=== PATIENT | female | born 1935 | race African-American/Black ===

== ENCOUNTER 2016-07-25 14:01 | Emergency (ER) | payer MEDICARE, OTHER ==
[~2016-07-25] VITALS: Ht 162.6 cm; Wt 81.8 kg
[~2016-07-25 14:01] MED LIST: ADV250 IH; ALBU8.5H IH; ALBU8HFA IH; ASPI81TA42 PO; CHL25 PO; CLOP75 PO; DOCU250C91 PO; ESCI10TA PO; FERR-89 PO; FOLI1TAB15 PO; LORA0.5T2 PO; LOSA50TA37 PO; METF500T4 PO; METO-325 PO; NITR.4 SL; PANT40TA25 PO; POTA8TAB4 PO; TIOT185 IH
[2016-07-25] MEDS ORDERED: MECLIZINE HCL 25 MG TABLET PO ONE (15:15)
[2016-07-25] MEDS ORDERED: ONDANSETRON HCL 4 MG/2 ML VIAL IVP ONE ×2 (15:15→17:45)
[2016-07-25 15:39] LABS: BASOPHILS % (AUTO) 0.5 % (0.0-2.0); EOSINOPHILS % (AUTO) 0.5 % (1.0-6.0); HEMATOCRIT 41.3 % (36-46); LYMPHOCYTES % (AUTO) 10.3 % (22.0-44.0); MEAN CORPUSCULAR HEMOGLOBIN 28.3 pg (26.0-34.0); MEAN CORPUSCULAR HGB CONC 31.4 G/dL (31.0-37.0); MEAN CORPUSCULAR VOLUME 90 fL (80-100); MONOCYTES # (AUTO) 0.6 K/uL (0.1-1.0); NEUTROPHILS # (AUTO) 8.4 K/uL (1.8-7.7); NEUTROPHILS % (AUTO) 82.7 % (40.0-70.0); PLATELET COUNT (AUTO) 370 K/uL (150-450); RED BLOOD CELL COUNT(AUTO) 4.59 MIL/uL (4.00-5.20); RED CELL DISTRIBUTION WIDTH 14.4 % (11.5-14.5); WHITE BLOOD COUNT (AUTO) 10.2 K/uL (4.5-11.0)
[2016-07-25 15:44] LABS: ANION GAP 2 mmol/L (8-16); CALCIUM, TOTAL 9.2 mg/dL (8.8-10.5); CARBON DIOXIDE 37 mmol/L (22-29); CHLORIDE 95 mmol/L (98-107); CREATININE 0.97 mg/dL (0.60-1.30); GLOMERULAR FILTR. RATE CALC > 60 mL/min (>60); POTASSIUM 3.1 mmol/L (3.5-5.1); SODIUM SERUM 134 mmol/L (136-145); UREA NITROGEN, BLOOD 14 mg/dL (7-18)
[2016-07-25 15:49] LABS: PROTHROMBIN TIME 10.2 SEC (9.4-11.6)
[2016-07-25 16:06] LABS: B-TYPE NATRIURETIC PEPTIDE 11 pg/mL (0-100)
[2016-07-25 16:12] LABS: ALANINE AMINOTRANSFERASE 30 U/L (12-78); ALBUMIN 3.7 g/dL (3.4-5.0); ASPARTATE AMINOTRANSFERASE 22 U/L (15-37); BILIRUBIN,TOTAL 0.3 mg/dL (0.1-1.0); CREATINE KINASE MB 1.1 ng/mL (0-5); CREATINE KINASE, TOTAL 86 U/L (26-192); TOTAL PROTEIN, SERUM 7.9 g/dL (6.4-8.2)
[2016-07-25] MEDS: POTASSIUM CHL 10 MEQ/WATER 50 ML IV SCH ×2 (18:02→19:29)
[2016-07-25 19:34] LABS: ADD UA MICROSCOPIC NO; APPEARANCE,URINE CLEAR (CLEAR); GLUCOSE, URINE (UA) NEGATIVE (NEGATIVE); KETONES,URINE NEGATIVE (NEGATIVE); LEUKOCYTE ESTERASE ,URINE NEGATIVE (NEGATIVE); OCCULT BLOOD,URINE NEGATIVE (NEGATIVE); PROTEIN,URINE POS 1+ (NEGATIVE)
[2016-07-25 20:43] VITALS: BP 139/67
== END 2016-07-25 20:58 | disposition home or self-care (01) ==
LOC: EMS 14:03
DX: R42 Dizziness and giddiness (principal); R11.2 Nausea with vomiting, unspecified; J45.909 Unspecified asthma, uncomplicated; I25.10 Atherosclerotic heart disease of native coronary artery without angina pectoris; I50.9 Heart failure, unspecified; I10 Essential (primary) hypertension; E11.9 Type 2 diabetes mellitus without complications; J44.9 Chronic obstructive pulmonary disease, unspecified; Z79.82 Long term (current) use of aspirin; Z88.2 Allergy status to sulfonamides
CPT/HCPCS: 36415; 70450; 71010; 80053; 81003; 82550; 82553; 83690; 83880; 84484; 85025; 85610; 85730; 93005; 96361; 96374; 96376; 99285; J2405; J3480

== ENCOUNTER 2017-03-03 07:37 | Inpatient (IN) | payer MEDICARE, OTHER ==
[~2017-03-03] VITALS: Ht 154.9 cm; Wt 64.0 kg
[~2017-03-03 07:37] MED LIST changes: -ALBU8.5H IH; +ALBU8.5H8 IH; -ALBU8HFA IH; -METO-325 PO; +METO-391 PO
[2017-03-03 07:57] LABS: GLUCOSE,POINT OF CARE 211 MG/DL (70-110)
[2017-03-03] MEDS ORDERED: DOXY50 PO (08:05)
[2017-03-03] MEDS ORDERED: MethylPREDNISolone SOD SUCC 125 MG/2 ML VIAL IVP ONE (08:15)
[2017-03-03 08:51] LABS: EOSINOPHILS % (AUTO) 0.01 % (1.0-6.0); HEMATOCRIT 37.2 % (36-46); HEMOGLOBIN 12.3 g/dL (12.0-16.0); LYMPHOCYTES # (AUTO) 0.5 K/uL (1.0-4.8); LYMPHOCYTES % (AUTO) 3.3 % (22.0-44.0); MEAN CORPUSCULAR HEMOGLOBIN 29.2 pg (26.0-34.0); MEAN CORPUSCULAR VOLUME 88 fL (80-100); MONOCYTES # (AUTO) 0.6 K/uL (0.1-1.0); MONOCYTES % (AUTO) 3.9 % (2.0-9.0); NEUTROPHILS # (AUTO) 13.1 K/uL (1.8-7.7); PLATELET COUNT (AUTO) 308 K/uL (150-450); RED BLOOD CELL COUNT(AUTO) 4.21 MIL/uL (4.00-5.20); RED CELL DISTRIBUTION WIDTH 14.2 % (11.5-14.5)
[2017-03-03 08:56] LABS: NEUTROPHILS % (AUTO) 92.7 % (40.0-70.0)
[2017-03-03 09:03] LABS: ANION GAP 8 mmol/L (8-16); CARBON DIOXIDE 32 mmol/L (22-29); CHLORIDE 91 mmol/L (98-107); CREATININE 0.85 mg/dL (0.60-1.30); GLOMERULAR FILTR. RATE CALC > 60 mL/min (>60); GLUCOSE,RANDOM 232 mg/dL (70-110); POTASSIUM 4.5 mmol/L (3.5-5.1); SODIUM SERUM 131 mmol/L (136-145); UREA NITROGEN, BLOOD 11 mg/dL (7-18)
[2017-03-03 09:09] LABS: ALANINE AMINOTRANSFERASE 16 U/L (12-78); ALBUMIN 2.8 g/dL (3.4-5.0); ALKALINE PHOSPHATASE 99 U/L (46-116); ASPARTATE AMINOTRANSFERASE 18 U/L (15-37); BILIRUBIN,TOTAL 0.6 mg/dL (0.1-1.0); TOTAL PROTEIN, SERUM 7.4 g/dL (6.4-8.2)
[2017-03-03] MEDS ORDERED: ASPIRIN 325 MG TABLET PO ONE (09:30)
[2017-03-03 09:31] LABS: B-TYPE NATRIURETIC PEPTIDE 106 pg/mL (0-100)
[2017-03-03] MEDS ORDERED: LEVOFLOXACIN 250 MG TABLET PO ONE (10:45)
[2017-03-03] MEDS ORDERED: SODIUM CHLORIDE 0.9% 1,000 ML IV ONE ×2 (10:45)
[2017-03-03 10:50] LABS: INFLUENZA TYPE A NEGATIVE FOR TYPE A (NEGATIVE); INFLUENZA TYPE B POSITIVE FOR TYPE B (NEGATIVE)
[2017-03-03] MEDS ORDERED: LEVOFLOXACIN 750 MG/D5% WATER 150 ML IV ONE (11:45)
[2017-03-03] MEDS ORDERED: OSELTAMIVIR PHOSPHATE 75 MG CAPSULE PO ONE (12:00)
[2017-03-03 12:40] LABS: LACTIC ACID 2.1 mmol/L (0.4-2.0)
[2017-03-03] MEDS ORDERED: POTASSIUM CHLORIDE 20 MEQ ER TABLET PO PRN (13:00)
[2017-03-03] MEDS ORDERED: DEXTROSE 50%-WATER 25 GM/50 ML SYRINGE IVP PRN (13:00)
[2017-03-03] MEDS ORDERED: POTASSIUM CHL 10 MEQ/WATER 50 ML IV PRN (13:00)
[2017-03-03] MEDS: PANTOPRAZOLE SODIUM 40 MG DR TABLET PO SCH (13:33)
[2017-03-03] MEDS: CefTRIAXone 1 GM/DEXTROSE 50 ML IV SCH (13:33)
[2017-03-03] MEDS: ALBUTEROL SULFATE 2.5 MG/0.5 ML NEB SOLUTION NEB SCH ×3 (15:25→22:59)
[2017-03-03] MEDS: IPRATROPIUM BROMIDE 0.5 MG/2.5 ML NEB SOLUTION NEB SCH ×3 (15:25→22:59)
[2017-03-03 15:50] VITALS: BP 157/76
[2017-03-03] MEDS: HEPARIN SODIUM,PORCINE 5,000 UNITS/ML VIAL SQ SCH (16:31)
[2017-03-03] MEDS: INSULIN ASPART 100 UNITS/ML SQ PRN ×2 (17:53→20:29)
[2017-03-03] MEDS: MethylPREDNISolone SOD SUCC 125 MG/2 ML VIAL IVP SCH (17:54)
[2017-03-03] MEDS: ACETAMINOPHEN 325 MG TABLET PO PRN (18:03)
[2017-03-03 19:22] VITALS: BP 150/87
[2017-03-03] MEDS: DOCUSATE SODIUM 100 MG CAPSULE PO SCH (20:14)
[2017-03-03] MEDS: OSELTAMIVIR PHOSPHATE 75 MG CAPSULE PO SCH (20:14)
[2017-03-03] MEDS ORDERED: ATORVASTATIN CALCIUM 20 MG TABLET PO SCH (21:00)
[2017-03-03 21:28] LABS: GLUCOMETER DEV NAME(LOC) PV 4E; GLUCOSE,POINT OF CARE 320 MG/DL (70-110)
[2017-03-03 21:28] LABS: GLUCOMETER DEV NAME(LOC) PV 4E; GLUCOSE,POINT OF CARE 313 MG/DL (70-110)
[2017-03-03] MEDS: ALPRAZolam 0.5 MG TABLET PO PRN (21:55)
[2017-03-03] MEDS ORDERED: AZITHROMYCIN 500 MG/NS 250 ML IV ONE (22:00)
[2017-03-03] MEDS: AZITHROMYCIN 500 MG/NS 250 ML IV SCH (22:36)
[2017-03-03] MEDS ORDERED: SODIUM CHLORIDE 0.9% 500 ML IV ONE (22:38)
[2017-03-04] VITALS (7 sets, daily range): BP systolic 134–167; BP diastolic 81–101
[2017-03-04] MEDS: MethylPREDNISolone SOD SUCC 125 MG/2 ML VIAL IVP SCH ×4 (00:09→18:33)
[2017-03-04] MEDS: HEPARIN SODIUM,PORCINE 5,000 UNITS/ML VIAL SQ SCH ×3 (00:11→16:44)
[2017-03-04] MEDS: ALBUTEROL SULFATE 2.5 MG/0.5 ML NEB SOLUTION NEB SCH ×6 (03:14→22:45)
[2017-03-04] MEDS: IPRATROPIUM BROMIDE 0.5 MG/2.5 ML NEB SOLUTION NEB SCH ×6 (03:14→22:45)
[2017-03-04] MEDS: INSULIN ASPART 100 UNITS/ML SQ PRN ×4 (05:57→20:28)
[2017-03-04 07:38] LABS: GLUCOMETER DEV NAME(LOC) PV 4E; GLUCOSE,POINT OF CARE 290 MG/DL (70-110)
[2017-03-04] MEDS: CLOPIDOGREL BISULFATE 75 MG TABLET PO SCH (08:30)
[2017-03-04] MEDS: OSELTAMIVIR PHOSPHATE 75 MG CAPSULE PO SCH ×2 (08:31→20:16)
[2017-03-04] MEDS: DOCUSATE SODIUM 100 MG CAPSULE PO SCH ×2 (08:31→20:16)
[2017-03-04] MEDS: PANTOPRAZOLE SODIUM 40 MG DR TABLET PO SCH (08:31)
[2017-03-04] MEDS: ASPIRIN 81 MG CHEWABLE TABLET PO SCH (08:31)
[2017-03-04] MEDS: ALPRAZolam 0.5 MG TABLET PO PRN ×2 (08:40→20:21)
[2017-03-04] MEDS ORDERED: AZITHROMYCIN 250 MG TABLET PO SCH (09:00)
[2017-03-04 12:18] LABS: GLUCOMETER DEV NAME(LOC) PV 4E; GLUCOSE,POINT OF CARE 328 MG/DL (70-110)
[2017-03-04] MEDS: CefTRIAXone 1 GM/DEXTROSE 50 ML IV SCH (12:28)
[2017-03-04] MEDS: INSULIN DETEMIR 100 UNITS/ML SQ SCH ×2 (13:38→20:28)
[2017-03-04] MEDS: METOPROLOL TARTRATE 25 MG TABLET PO SCH ×2 (13:41→20:16)
[2017-03-04 16:23] LABS: GLUCOMETER DEV NAME(LOC) PV 4E; GLUCOSE,POINT OF CARE 219 MG/DL (70-110)
[2017-03-04] MEDS: OxyCODONE HCL/ACETAMINOPHEN 5-325 MG TABLET PO PRN (20:21)
[2017-03-04 20:52] LABS: GLUCOMETER DEV NAME(LOC) PV 4E; GLUCOSE,POINT OF CARE 281 MG/DL (70-110)
[2017-03-04] MEDS: AZITHROMYCIN 500 MG/NS 250 ML IV SCH (22:24)
[2017-03-05 00:02] VITALS: BP 126/64
[2017-03-05] MEDS: HEPARIN SODIUM,PORCINE 5,000 UNITS/ML VIAL SQ SCH ×3 (00:14→17:16)
[2017-03-05] MEDS: MethylPREDNISolone SOD SUCC 125 MG/2 ML VIAL IVP SCH ×4 (00:14→17:16)
[2017-03-05] MEDS: ALBUTEROL SULFATE 2.5 MG/0.5 ML NEB SOLUTION NEB SCH ×6 (03:15→22:59)
[2017-03-05] MEDS: IPRATROPIUM BROMIDE 0.5 MG/2.5 ML NEB SOLUTION NEB SCH ×6 (03:15→22:59)
[2017-03-05] MEDS: OxyCODONE HCL/ACETAMINOPHEN 5-325 MG TABLET PO PRN (04:00)
[2017-03-05 05:19] VITALS: BP 147/78
[2017-03-05] MEDS: INSULIN ASPART 100 UNITS/ML SQ PRN ×4 (05:26→22:57)
[2017-03-05] MEDS: METOPROLOL TARTRATE 25 MG TABLET PO SCH ×2 (06:48→22:47)
[2017-03-05 07:11] LABS: EOSINOPHILS % (AUTO) 0 % (1.0-6.0); HEMATOCRIT 32.8 % (36-46); HEMOGLOBIN 10.9 g/dL (12.0-16.0); LYMPHOCYTES # (AUTO) 0.3 K/uL (1.0-4.8); LYMPHOCYTES % (AUTO) 2.1 % (22.0-44.0); MEAN CORPUSCULAR HEMOGLOBIN 29.2 pg (26.0-34.0); MEAN CORPUSCULAR HGB CONC 33.2 G/dL (31.0-37.0); MEAN CORPUSCULAR VOLUME 88 fL (80-100); MONOCYTES # (AUTO) 0.4 K/uL (0.1-1.0); MONOCYTES % (AUTO) 2.7 % (2.0-9.0); NEUTROPHILS # (AUTO) 14.6 K/uL (1.8-7.7); PLATELET COUNT (AUTO) 347 K/uL (150-450); RED BLOOD CELL COUNT(AUTO) 3.72 MIL/uL (4.00-5.20); RED CELL DISTRIBUTION WIDTH 14.5 % (11.5-14.5)
[2017-03-05 07:16] LABS: NEUTROPHILS % (AUTO) 95.2 % (40.0-70.0)
[2017-03-05 07:17] LABS: GLUCOMETER DEV NAME(LOC) PV 4E; GLUCOSE,POINT OF CARE 210 MG/DL (70-110)
[2017-03-05 07:19] LABS: ANION GAP 4 mmol/L (8-16); CARBON DIOXIDE 39 mmol/L (22-29); CHLORIDE 94 mmol/L (98-107); CREATININE 0.77 mg/dL (0.60-1.30); GLOMERULAR FILTR. RATE CALC > 60 mL/min (>60); GLUCOSE,RANDOM 213 mg/dL (70-110); POTASSIUM 3.7 mmol/L (3.5-5.1); SODIUM SERUM 137 mmol/L (136-145); UREA NITROGEN, BLOOD 8 mg/dL (7-18)
[2017-03-05] MEDS: CLOPIDOGREL BISULFATE 75 MG TABLET PO SCH (07:43)
[2017-03-05] MEDS: DOCUSATE SODIUM 100 MG CAPSULE PO SCH ×2 (07:43→22:47)
[2017-03-05] MEDS: OSELTAMIVIR PHOSPHATE 75 MG CAPSULE PO SCH ×2 (07:43→22:47)
[2017-03-05] MEDS: ASPIRIN 81 MG CHEWABLE TABLET PO SCH (07:44)
[2017-03-05] MEDS: PANTOPRAZOLE SODIUM 40 MG DR TABLET PO SCH (07:44)
[2017-03-05] MEDS: INSULIN DETEMIR 100 UNITS/ML SQ SCH ×2 (07:45→22:58)
[2017-03-05 08:39] VITALS: BP 162/80
[2017-03-05 12:25] VITALS: BP 159/92
[2017-03-05 13:47] LABS: GLUCOMETER DEV NAME(LOC) PV 4E; GLUCOSE,POINT OF CARE 233 MG/DL (70-110)
[2017-03-05] MEDS: CefTRIAXone 1 GM/DEXTROSE 50 ML IV SCH (14:00)
[2017-03-05 15:52] VITALS: BP 162/98
[2017-03-05 18:24] LABS: APPEARANCE,URINE CLEAR (CLEAR); BILIRUBIN,URINE NEGATIVE (NEGATIVE); GLUCOSE, URINE (UA) 250 mg/dL (NEGATIVE); KETONES,URINE NEGATIVE (NEGATIVE); LEUKOCYTE ESTERASE ,URINE NEGATIVE (NEGATIVE); NITRATE,URINE NEGATIVE (NEGATIVE); OCCULT BLOOD,URINE TRACE (NEGATIVE); PROTEIN,URINE SEE CONFIRM (NEGATIVE); UROBILINOGEN,URINE 0.2 mg/dL (<=1.0)
[2017-03-05 18:30] LABS: BACTERIA,URINE Rare /HPF (None Seen); SQUAMOUS EPITHELIAL CELL,UR Few /LPF (None Seen); SULFOSALICYLIC ACID,URINE 2+ (Negative); WBC,URINE 0-2 /HPF (0-5)
[2017-03-05 19:42] LABS: GLUCOMETER DEV NAME(LOC) PV 4E; GLUCOSE,POINT OF CARE 246 MG/DL (70-110)
[2017-03-05 22:30] VITALS: BP 190/85
[2017-03-05] MEDS: AZITHROMYCIN 500 MG/NS 250 ML IV SCH (22:47)
[2017-03-05 22:52] LABS: GLUCOMETER DEV NAME(LOC) PV 4E; GLUCOSE,POINT OF CARE 232 MG/DL (70-110)
[2017-03-05] MEDS: ACETAMINOPHEN 325 MG TABLET PO PRN (22:52)
[2017-03-06] VITALS (9 sets, daily range): BP systolic 151–199; BP diastolic 76–104
[2017-03-06] MEDS: HEPARIN SODIUM,PORCINE 5,000 UNITS/ML VIAL SQ SCH ×3 (00:58→16:36)
[2017-03-06] MEDS: MethylPREDNISolone SOD SUCC 125 MG/2 ML VIAL IVP SCH ×3 (01:49→11:39)
[2017-03-06] MEDS: ALBUTEROL SULFATE 2.5 MG/0.5 ML NEB SOLUTION NEB SCH ×6 (02:23→23:23)
[2017-03-06] MEDS: IPRATROPIUM BROMIDE 0.5 MG/2.5 ML NEB SOLUTION NEB SCH ×6 (02:23→23:23)
[2017-03-06] MEDS: INSULIN ASPART 100 UNITS/ML SQ PRN ×4 (06:33→20:14)
[2017-03-06 06:48] LABS: GLUCOMETER DEV NAME(LOC) PV 4E; GLUCOSE,POINT OF CARE 188 MG/DL (70-110)
[2017-03-06 07:14] LABS: BASOPHILS % (AUTO) 0.3 % (0.0-2.0); EOSINOPHILS % (AUTO) 0 % (1.0-6.0); HEMATOCRIT 36.6 % (36-46); LYMPHOCYTES # (AUTO) 0.4 K/uL (1.0-4.8); LYMPHOCYTES % (AUTO) 3.7 % (22.0-44.0); MEAN CORPUSCULAR HEMOGLOBIN 29.3 pg (26.0-34.0); MEAN CORPUSCULAR HGB CONC 32.7 G/dL (31.0-37.0); MEAN CORPUSCULAR VOLUME 90 fL (80-100); MONOCYTES # (AUTO) 0.5 K/uL (0.1-1.0); MONOCYTES % (AUTO) 3.9 % (2.0-9.0); PLATELET COUNT (AUTO) 362 K/uL (150-450); RED BLOOD CELL COUNT(AUTO) 4.09 MIL/uL (4.00-5.20); RED CELL DISTRIBUTION WIDTH 14.4 % (11.5-14.5)
[2017-03-06 07:17] LABS: NEUTROPHILS % (AUTO) 92.1 % (40.0-70.0)
[2017-03-06 07:20] LABS: ANION GAP 5 mmol/L (8-16); CARBON DIOXIDE 39 mmol/L (22-29); CHLORIDE 93 mmol/L (98-107); CREATININE 0.72 mg/dL (0.60-1.30); GLOMERULAR FILTR. RATE CALC > 60 mL/min (>60); GLUCOSE,RANDOM 193 mg/dL (70-110); POTASSIUM 3.5 mmol/L (3.5-5.1); SODIUM SERUM 137 mmol/L (136-145); UREA NITROGEN, BLOOD 10 mg/dL (7-18)
[2017-03-06] MEDS: CLOPIDOGREL BISULFATE 75 MG TABLET PO SCH (09:07)
[2017-03-06] MEDS: OSELTAMIVIR PHOSPHATE 75 MG CAPSULE PO SCH ×2 (09:07→20:01)
[2017-03-06] MEDS: METOPROLOL TARTRATE 25 MG TABLET PO SCH ×2 (09:08→20:02)
[2017-03-06] MEDS: ASPIRIN 81 MG CHEWABLE TABLET PO SCH (09:08)
[2017-03-06] MEDS: PANTOPRAZOLE SODIUM 40 MG DR TABLET PO SCH (09:08)
[2017-03-06] MEDS: DOCUSATE SODIUM 100 MG CAPSULE PO SCH ×2 (09:12→20:01)
[2017-03-06] MEDS: INSULIN DETEMIR 100 UNITS/ML SQ SCH ×2 (09:15→20:13)
[2017-03-06 12:48] LABS: GLUCOMETER DEV NAME(LOC) PV 4E; GLUCOSE,POINT OF CARE 265 MG/DL (70-110)
[2017-03-06] MEDS: CloNIDine HCL 0.1 MG TABLET PO PRN (12:53)
[2017-03-06] MEDS: CefTRIAXone 1 GM/DEXTROSE 50 ML IV SCH (13:30)
[2017-03-06] MEDS: LISINOPRIL 20 MG TABLET PO SCH (16:35)
[2017-03-06] MEDS: MethylPREDNISolone SOD SUCC 40 MG/ML VIAL IVP SCH (17:40)
[2017-03-06 17:53] LABS: GLUCOMETER DEV NAME(LOC) PV 4E; GLUCOSE,POINT OF CARE 256 MG/DL (70-110)
[2017-03-06 21:17] LABS: GLUCOMETER DEV NAME(LOC) PV 4E; GLUCOSE,POINT OF CARE 292 MG/DL (70-110)
[2017-03-06] MEDS: AZITHROMYCIN 500 MG/NS 250 ML IV SCH (23:16)
[2017-03-07] VITALS (9 sets, daily range): BP systolic 162–215; BP diastolic 78–136
[2017-03-07] MEDS: MethylPREDNISolone SOD SUCC 40 MG/ML VIAL IVP SCH ×2 (01:01→06:04)
[2017-03-07] MEDS: HEPARIN SODIUM,PORCINE 5,000 UNITS/ML VIAL SQ SCH ×3 (01:05→16:49)
[2017-03-07] MEDS: ALBUTEROL SULFATE 2.5 MG/0.5 ML NEB SOLUTION NEB SCH ×6 (02:30→23:24)
[2017-03-07] MEDS: IPRATROPIUM BROMIDE 0.5 MG/2.5 ML NEB SOLUTION NEB SCH ×6 (02:30→23:24)
[2017-03-07 06:03] LABS: GLUCOMETER DEV NAME(LOC) PV 4E; GLUCOSE,POINT OF CARE 187 MG/DL (70-110)
[2017-03-07] MEDS: INSULIN ASPART 100 UNITS/ML SQ PRN ×4 (06:04→20:21)
[2017-03-07 06:46] LABS: ANION GAP 3 mmol/L (8-16); CALCIUM, TOTAL 8.8 mg/dL (8.8-10.5); CARBON DIOXIDE 38 mmol/L (22-29); CHLORIDE 90 mmol/L (98-107); CREATININE 0.68 mg/dL (0.60-1.30); GLOMERULAR FILTR. RATE CALC > 60 mL/min (>60); GLUCOSE,RANDOM 198 mg/dL (70-110); POTASSIUM 3.7 mmol/L (3.5-5.1); SODIUM SERUM 131 mmol/L (136-145); UREA NITROGEN, BLOOD 12 mg/dL (7-18)
[2017-03-07] MEDS: CloNIDine HCL 0.1 MG TABLET PO PRN ×3 (06:47→22:59)
[2017-03-07] MEDS: ASPIRIN 81 MG CHEWABLE TABLET PO SCH (08:17)
[2017-03-07] MEDS: LISINOPRIL 20 MG TABLET PO SCH (08:17)
[2017-03-07] MEDS: DOCUSATE SODIUM 100 MG CAPSULE PO SCH ×2 (08:17→20:04)
[2017-03-07] MEDS: CLOPIDOGREL BISULFATE 75 MG TABLET PO SCH (08:17)
[2017-03-07] MEDS: PANTOPRAZOLE SODIUM 40 MG DR TABLET PO SCH (08:17)
[2017-03-07] MEDS: OSELTAMIVIR PHOSPHATE 75 MG CAPSULE PO SCH ×2 (08:17→20:04)
[2017-03-07] MEDS: METOPROLOL TARTRATE 25 MG TABLET PO SCH ×2 (08:27→20:04)
[2017-03-07] MEDS: INSULIN DETEMIR 100 UNITS/ML SQ SCH ×2 (08:32→20:20)
[2017-03-07 08:43] LABS: GLUCOMETER DEV NAME(LOC) PV 4E; GLUCOSE,POINT OF CARE 279 MG/DL (70-110)
[2017-03-07 12:18] LABS: GLUCOMETER DEV NAME(LOC) PV 4E; GLUCOSE,POINT OF CARE 251 MG/DL (70-110)
[2017-03-07] MEDS: PredniSONE 20 MG TABLET PO SCH (12:23)
[2017-03-07] MEDS: CefTRIAXone 1 GM/DEXTROSE 50 ML IV SCH (13:07)
[2017-03-07] MEDS: ACETAMINOPHEN 325 MG TABLET PO PRN ×2 (14:04→20:05)
[2017-03-07 16:58] LABS: GLUCOMETER DEV NAME(LOC) PV 4E; GLUCOSE,POINT OF CARE 160 MG/DL (70-110)
[2017-03-07] MEDS: AZITHROMYCIN 500 MG/NS 250 ML IV SCH (23:17)
[2017-03-07] MEDS ORDERED: ENALAPRILAT DIHYDRATE 1.25 MG/ML VIAL IVP ONE (23:30)
[2017-03-08] VITALS (8 sets, daily range): BP systolic 155–211; BP diastolic 64–104
[2017-03-08] MEDS: ALBUTEROL SULFATE 2.5 MG/0.5 ML NEB SOLUTION NEB SCH ×6 (02:48→23:36)
[2017-03-08] MEDS: IPRATROPIUM BROMIDE 0.5 MG/2.5 ML NEB SOLUTION NEB SCH ×6 (02:48→23:37)
[2017-03-08 03:54] LABS: GLUCOMETER DEV NAME(LOC) PV 4E; GLUCOSE,POINT OF CARE 202 MG/DL (70-110)
[2017-03-08 06:52] LABS: BASOPHILS % (AUTO) 0.1 % (0.0-2.0); EOSINOPHILS % (AUTO) 0.1 % (1.0-6.0); HEMATOCRIT 37.9 % (36-46); HEMOGLOBIN 12.5 g/dL (12.0-16.0); LYMPHOCYTES # (AUTO) 2.3 K/uL (1.0-4.8); LYMPHOCYTES % (AUTO) 17.4 % (22.0-44.0); MEAN CORPUSCULAR HEMOGLOBIN 29.1 pg (26.0-34.0); MEAN CORPUSCULAR VOLUME 88 fL (80-100); MONOCYTES # (AUTO) 1.1 K/uL (0.1-1.0); MONOCYTES % (AUTO) 8.2 % (2.0-9.0); NEUTROPHILS # (AUTO) 9.7 K/uL (1.8-7.7); NEUTROPHILS % (AUTO) 74.2 % (40.0-70.0); PLATELET COUNT (AUTO) 479 K/uL (150-450); RED CELL DISTRIBUTION WIDTH 14.7 % (11.5-14.5)
[2017-03-08 07:33] LABS: ANION GAP 1 mmol/L (8-16); CALCIUM, TOTAL 8.7 mg/dL (8.8-10.5); CARBON DIOXIDE 38 mmol/L (22-29); CHLORIDE 90 mmol/L (98-107); CREATININE 0.68 mg/dL (0.60-1.30); GLOMERULAR FILTR. RATE CALC > 60 mL/min (>60); GLUCOSE,RANDOM 75 mg/dL (70-110); SODIUM SERUM 129 mmol/L (136-145); UREA NITROGEN, BLOOD 15 mg/dL (7-18)
[2017-03-08] MEDS: LISINOPRIL 20 MG TABLET PO SCH (08:07)
[2017-03-08] MEDS: METOPROLOL TARTRATE 25 MG TABLET PO SCH ×2 (08:07→20:40)
[2017-03-08] MEDS: HEPARIN SODIUM,PORCINE 5,000 UNITS/ML VIAL SQ SCH ×3 (08:07→16:00)
[2017-03-08] MEDS: CLOPIDOGREL BISULFATE 75 MG TABLET PO SCH (08:07)
[2017-03-08] MEDS: PANTOPRAZOLE SODIUM 40 MG DR TABLET PO SCH (08:07)
[2017-03-08] MEDS: DOCUSATE SODIUM 100 MG CAPSULE PO SCH ×2 (08:07→20:40)
[2017-03-08] MEDS: PredniSONE 20 MG TABLET PO SCH (08:07)
[2017-03-08] MEDS: ASPIRIN 81 MG CHEWABLE TABLET PO SCH (08:08)
[2017-03-08] MEDS: OSELTAMIVIR PHOSPHATE 75 MG CAPSULE PO SCH ×2 (08:09→20:40)
[2017-03-08] MEDS: INSULIN DETEMIR 100 UNITS/ML SQ SCH ×2 (08:18→20:43)
[2017-03-08] MEDS: CloNIDine HCL 0.1 MG TABLET PO PRN ×2 (11:23→18:59)
[2017-03-08] MEDS: CefTRIAXone 1 GM/DEXTROSE 50 ML IV SCH (12:38)
[2017-03-08] MEDS: INSULIN ASPART 100 UNITS/ML SQ PRN ×3 (12:42→20:41)
[2017-03-08] MEDS ORDERED: CloNIDine HCL 0.1 MG TABLET PO ONE (15:30)
[2017-03-08] MEDS: IPRATROPIUM BROMIDE 0.5 MG/2.5 ML NEB SOLUTION NEB PRN (17:20)
[2017-03-08] MEDS: ALBUTEROL SULFATE 2.5 MG/0.5 ML NEB SOLUTION NEB PRN (17:20)
[2017-03-08] MEDS: MethylPREDNISolone SOD SUCC 125 MG/2 ML VIAL IVP SCH (17:21)
[2017-03-08] MEDS: ACETAMINOPHEN 325 MG TABLET PO PRN (21:40)
[2017-03-08] MEDS: HydrALAZINE HCL 25 MG TABLET PO SCH (21:41)
[2017-03-08] MEDS: AZITHROMYCIN 500 MG/NS 250 ML IV SCH (21:41)
[2017-03-08] MEDS ORDERED: SODIUM CHLORIDE 0.9% 500 ML IV ONE (21:45)
[2017-03-09] VITALS (7 sets, daily range): BP systolic 145–184; BP diastolic 70–97
[2017-03-09] MEDS: MethylPREDNISolone SOD SUCC 125 MG/2 ML VIAL IVP SCH ×4 (00:50→17:50)
[2017-03-09] MEDS: HEPARIN SODIUM,PORCINE 5,000 UNITS/ML VIAL SQ SCH ×3 (00:50→16:45)
[2017-03-09] MEDS: IPRATROPIUM BROMIDE 0.5 MG/2.5 ML NEB SOLUTION NEB SCH ×3 (03:00→15:41)
[2017-03-09] MEDS: ALBUTEROL SULFATE 2.5 MG/0.5 ML NEB SOLUTION NEB SCH ×3 (03:00→15:41)
[2017-03-09] MEDS: INSULIN ASPART 100 UNITS/ML SQ PRN ×3 (05:55→17:51)
[2017-03-09 06:58] LABS: GLUCOMETER DEV NAME(LOC) 5N 1M; GLUCOSE,POINT OF CARE 192 MG/DL (70-110)
[2017-03-09 07:07] LABS: BASOPHILS # (AUTO) 0.01 K/uL (0.00-0.20); BASOPHILS % (AUTO) 0.1 % (0.0-2.0); EOSINOPHILS % (AUTO) 0.03 % (1.0-6.0); HEMATOCRIT 37.1 % (36-46); LYMPHOCYTES # (AUTO) 1.1 K/uL (1.0-4.8); LYMPHOCYTES % (AUTO) 6.4 % (22.0-44.0); MEAN CORPUSCULAR HEMOGLOBIN 28.7 pg (26.0-34.0); MEAN CORPUSCULAR HGB CONC 32.4 G/dL (31.0-37.0); MEAN CORPUSCULAR VOLUME 89 fL (80-100); MONOCYTES # (AUTO) 0.5 K/uL (0.1-1.0); MONOCYTES % (AUTO) 2.6 % (2.0-9.0); NEUTROPHILS # (AUTO) 15.8 K/uL (1.8-7.7); PLATELET COUNT (AUTO) 511 K/uL (150-450); RED BLOOD CELL COUNT(AUTO) 4.19 MIL/uL (4.00-5.20); RED CELL DISTRIBUTION WIDTH 14.4 % (11.5-14.5)
[2017-03-09 07:53] LABS: NEUTROPHILS % (AUTO) 90.8 % (40.0-70.0)
[2017-03-09] MEDS: HydrALAZINE HCL 25 MG TABLET PO SCH ×3 (08:18→16:45)
[2017-03-09] MEDS: ASPIRIN 81 MG CHEWABLE TABLET PO SCH (08:19)
[2017-03-09] MEDS: DOCUSATE SODIUM 100 MG CAPSULE PO SCH (08:19)
[2017-03-09] MEDS: METOPROLOL TARTRATE 25 MG TABLET PO SCH (08:19)
[2017-03-09] MEDS: CLOPIDOGREL BISULFATE 75 MG TABLET PO SCH (08:19)
[2017-03-09] MEDS: PANTOPRAZOLE SODIUM 40 MG DR TABLET PO SCH (08:19)
[2017-03-09] MEDS: LISINOPRIL 20 MG TABLET PO SCH (08:24)
[2017-03-09] MEDS: INSULIN DETEMIR 100 UNITS/ML SQ SCH (08:26)
[2017-03-09] MEDS ORDERED: AmLODIPine BESYLATE 10 MG TABLET PO SCH (09:00)
[2017-03-09] MEDS ORDERED: DENTURE ADHESIVE 68 GM CREAM DT PRN (09:45)
[2017-03-09] MEDS: NYSTATIN 500,000 UNITS/5 ML SUSPENSION UDCUP PO SCH ×3 (11:06→17:49)
[2017-03-09] MEDS: CefTRIAXone 1 GM/DEXTROSE 50 ML IV SCH (13:04)
[2017-03-09] MEDS: ALBUTEROL SULFATE 2.5 MG/0.5 ML NEB SOLUTION NEB PRN (13:17)
[2017-03-09] MEDS: IPRATROPIUM BROMIDE 0.5 MG/2.5 ML NEB SOLUTION NEB PRN (13:17)
[2017-03-09] MEDS: CloNIDine HCL 0.1 MG TABLET PO PRN (18:40)
[2017-03-09 19:23] LABS: GLUCOMETER DEV NAME(LOC) 5S 2N; GLUCOSE,POINT OF CARE 242 MG/DL (70-110)
[2017-03-09 19:23] LABS: GLUCOMETER DEV NAME(LOC) 5S 2N; GLUCOSE,POINT OF CARE 322 MG/DL (70-110)
[2017-03-09 19:27] LABS: GLUCOMETER DEV NAME(LOC) 5S 2N; GLUCOSE,POINT OF CARE 270 MG/DL (70-110)
[2017-03-09] MEDS ORDERED: METOPROLOL TARTRATE 25 MG TABLET PO SCH (21:00)
[2017-03-09 22:34] LABS: GLUCOMETER DEV NAME(LOC) 5S 1L; GLUCOSE,POINT OF CARE 336 MG/DL (70-110)
[2017-03-09 22:34] LABS: GLUCOMETER DEV NAME(LOC) 5S 1L; GLUCOSE,POINT OF CARE 267 MG/DL (70-110)
[2017-03-09 22:34] LABS: GLUCOMETER DEV NAME(LOC) 5S 1L; GLUCOSE,POINT OF CARE 93 MG/DL (70-110)
== END 2017-03-09 19:45 | DRG 193 ==
LOC: EMS 07:40 → 4E 14:49 → 5N 03-08 00:48
PROVIDERS: ADMIT Internal Medicine; ATTEND Internal Medicine
DX: J10.00 Influenza due to other identified influenza virus with unspecified type of pneumonia (principal); J96.21 Acute and chronic respiratory failure with hypoxia; J44.0 Chronic obstructive pulmonary disease with (acute) lower respiratory infection; B37.0 Candidal stomatitis; I11.0 Hypertensive heart disease with heart failure; I50.9 Heart failure, unspecified; J44.1 Chronic obstructive pulmonary disease with (acute) exacerbation; E11.9 Type 2 diabetes mellitus without complications; F17.210 Nicotine dependence, cigarettes, uncomplicated; J18.9 Pneumonia, unspecified organism; J10.1 Influenza due to other identified influenza virus with other respiratory manifestations; I25.10 Atherosclerotic heart disease of native coronary artery without angina pectoris; Z95.5 Presence of coronary angioplasty implant and graft; Z83.3 Family history of diabetes mellitus; Z82.49 Family history of ischemic heart disease and other diseases of the circulatory system; Z88.2 Allergy status to sulfonamides; Z88.8 Allergy status to other drugs, medicaments and biological substances; Z79.84 Long term (current) use of oral hypoglycemic drugs; Z79.82 Long term (current) use of aspirin; Z99.81 Dependence on supplemental oxygen
CPT/HCPCS: 71250; 82962; 83605; 84132; 87040; 87804; 94640; 96365; 96375; 97162; 99291; J0456; J0696; J1644; J1956; J2920; J2930; J3490; J7040

== ENCOUNTER 2017-04-23 06:20 | Emergency (ER) | payer MEDICARE, OTHER ==
[~2017-04-23] VITALS: Ht 154.9 cm; Wt 63.6 kg
[~2017-04-23 06:20] MED LIST changes: +DOXY50 PO; -LOSA50TA37 PO
[2017-04-23] MEDS ORDERED: SODIUM CHLORIDE 0.9% 1,000 ML IV ONE ×2 (07:00→09:15)
[2017-04-23] MEDS ORDERED: ONDANSETRON HCL 4 MG/2 ML VIAL IVP ONE (07:00)
[2017-04-23 07:42] LABS: BASOPHILS % (AUTO) 0.3 % (0.0-2.0); EOSINOPHILS % (AUTO) 0.2 % (1.0-6.0); HEMATOCRIT 35.5 % (36-46); HEMOGLOBIN 11.5 g/dL (12.0-16.0); LYMPHOCYTES # (AUTO) 1.3 K/uL (1.0-4.8); LYMPHOCYTES % (AUTO) 12.6 % (22.0-44.0); MEAN CORPUSCULAR HEMOGLOBIN 27.6 pg (26.0-34.0); MEAN CORPUSCULAR HGB CONC 32.5 G/dL (31.0-37.0); MEAN CORPUSCULAR VOLUME 85 fL (80-100); MONOCYTES # (AUTO) 0.8 K/uL (0.1-1.0); MONOCYTES % (AUTO) 7.6 % (2.0-9.0); NEUTROPHILS # (AUTO) 8.5 K/uL (1.8-7.7); NEUTROPHILS % (AUTO) 79.3 % (40.0-70.0); PLATELET COUNT (AUTO) 520 K/uL (150-450); RED BLOOD CELL COUNT(AUTO) 4.18 MIL/uL (4.00-5.20); RED CELL DISTRIBUTION WIDTH 18.2 % (11.5-14.5)
[2017-04-23 07:55] LABS: ANION GAP 5 mmol/L (8-16); CALCIUM, TOTAL 9.6 mg/dL (8.8-10.5); CARBON DIOXIDE 37 mmol/L (22-29); CHLORIDE 91 mmol/L (98-107); CREATININE 0.67 mg/dL (0.60-1.30); GLOMERULAR FILTR. RATE CALC > 60 mL/min (>60); GLUCOSE,RANDOM 279 mg/dL (70-110); POTASSIUM 3.7 mmol/L (3.5-5.1); SODIUM SERUM 133 mmol/L (136-145); UREA NITROGEN, BLOOD 7 mg/dL (7-18)
[2017-04-23 08:01] LABS: ALANINE AMINOTRANSFERASE 16 U/L (12-78); ALBUMIN 3.1 g/dL (3.4-5.0); ALKALINE PHOSPHATASE 114 U/L (46-116); ASPARTATE AMINOTRANSFERASE 13 U/L (15-37); BILIRUBIN,TOTAL 0.2 mg/dL (0.1-1.0); LIPASE 84 U/L (73-393); TOTAL PROTEIN, SERUM 7.4 g/dL (6.4-8.2)
[2017-04-23] MEDS ORDERED: ONDANSETRON HCL 4 MG TABLET PO ONE (08:45)
[2017-04-23 13:41] VITALS: BP 152/81
== END 2017-04-23 14:14 | disposition home or self-care (01) ==
LOC: EMS 06:22
DX: R11.2 Nausea with vomiting, unspecified (principal); J45.909 Unspecified asthma, uncomplicated; I25.10 Atherosclerotic heart disease of native coronary artery without angina pectoris; I11.0 Hypertensive heart disease with heart failure; I50.9 Heart failure, unspecified; J44.9 Chronic obstructive pulmonary disease, unspecified; E11.9 Type 2 diabetes mellitus without complications; F17.210 Nicotine dependence, cigarettes, uncomplicated; Z79.82 Long term (current) use of aspirin; Z88.2 Allergy status to sulfonamides; Z88.8 Allergy status to other drugs, medicaments and biological substances
CPT/HCPCS: 36415; 71045; 80053; 82948; 82962; 83690; 83880; 84484; 85025; 93005; 96360; 96361; 99285; J7030; Q0162

== ENCOUNTER 2017-04-30 18:16 | Inpatient (IN) | payer MEDICARE, OTHER ==
[~2017-04-30] VITALS: Ht 157.5 cm; Wt 56.3 kg
[~2017-04-30 18:16] MED LIST changes: -DOXY50 PO; -PANT40TA25 PO
[2017-04-30] MEDS ORDERED: ONDANSETRON HCL 4 MG/2 ML VIAL IVP ONE (19:00)
[2017-04-30] MEDS ORDERED: SODIUM CHLORIDE 0.9% 1,000 ML IV ONE (19:00)
[2017-04-30 19:34] LABS: BASOPHILS % (AUTO) 0.6 % (0.0-2.0); EOSINOPHILS % (AUTO) 0.3 % (1.0-6.0); HEMATOCRIT 30.6 % (36-46); HEMOGLOBIN 10.2 g/dL (12.0-16.0); LYMPHOCYTES # (AUTO) 0.9 K/uL (1.0-4.8); LYMPHOCYTES % (AUTO) 9.5 % (22.0-44.0); MEAN CORPUSCULAR HEMOGLOBIN 27.9 pg (26.0-34.0); MEAN CORPUSCULAR HGB CONC 33.1 G/dL (31.0-37.0); MEAN CORPUSCULAR VOLUME 84 fL (80-100); MONOCYTES # (AUTO) 0.7 K/uL (0.1-1.0); MONOCYTES % (AUTO) 6.6 % (2.0-9.0); NEUTROPHILS # (AUTO) 8.2 K/uL (1.8-7.7); PLATELET COUNT (AUTO) 508 K/uL (150-450); RED BLOOD CELL COUNT(AUTO) 3.64 MIL/uL (4.00-5.20); RED CELL DISTRIBUTION WIDTH 19.1 % (11.5-14.5)
[2017-04-30 19:42] LABS: ANION GAP 5 mmol/L (8-16); CARBON DIOXIDE 33 mmol/L (22-29); CHLORIDE 94 mmol/L (98-107); CREATININE 0.61 mg/dL (0.60-1.30); GLOMERULAR FILTR. RATE CALC > 60 mL/min (>60); GLUCOSE,RANDOM 309 mg/dL (70-110); POTASSIUM 4.3 mmol/L (3.5-5.1); SODIUM SERUM 132 mmol/L (136-145); UREA NITROGEN, BLOOD 4 mg/dL (7-18)
[2017-04-30 19:45] LABS: PROTHROMBIN TIME 10.5 SEC (9.4-11.6)
[2017-04-30 19:48] LABS: ALANINE AMINOTRANSFERASE 17 U/L (12-78); ALBUMIN 2.7 g/dL (3.4-5.0); ALKALINE PHOSPHATASE 142 U/L (46-116); ASPARTATE AMINOTRANSFERASE 20 U/L (15-37); BILIRUBIN,TOTAL 0.2 mg/dL (0.1-1.0); CREATINE KINASE, TOTAL 57 U/L (26-192); LIPASE 68 U/L (73-393)
[2017-04-30] MEDS ORDERED: IOVERSOL 320 MG/ML 100 ML VIAL ONE (19:50)
[2017-04-30] MEDS ORDERED: BARIUM SULFATE 0.1% SUSPENSION 450 ML BOTTLE PO ONE (20:00)
[2017-04-30 20:01] LABS: B-TYPE NATRIURETIC PEPTIDE 124 pg/mL (0-100)
[2017-04-30 22:45] LABS: APPEARANCE,URINE CLEAR (CLEAR); BILIRUBIN,URINE NEGATIVE (NEGATIVE); GLUCOSE, URINE (UA) 500 mg/dL (NEGATIVE); KETONES,URINE NEGATIVE (NEGATIVE); LEUKOCYTE ESTERASE ,URINE NEGATIVE (NEGATIVE); NITRATE,URINE NEGATIVE (NEGATIVE); OCCULT BLOOD,URINE NEGATIVE (NEGATIVE); PROTEIN,URINE POS 1+ (NEGATIVE); UROBILINOGEN,URINE 0.2 mg/dL (<=1.0)
[2017-04-30] MEDS ORDERED: LEVOFLOXACIN 500 MG/D5% WATER 100 ML IV ONE (22:45)
[2017-04-30] MEDS ORDERED: 0.9% SODIUM CHLORIDE 10 ML SYRINGE IVP PRN (22:45)
[2017-04-30] MEDS ORDERED: ONDANSETRON HCL 4 MG/2 ML VIAL IVP PRN (22:45)
[2017-04-30] MEDS ORDERED: ACETAMINOPHEN 325 MG TABLET PO PRN (22:45)
[2017-04-30 22:59] LABS: BACTERIA,URINE Few /HPF (None Seen); RBC,URINE 0-2 /HPF (0-2); SQUAMOUS EPITHELIAL CELL,UR Moderate /LPF (None Seen); WBC,URINE 0-2 /HPF (0-5)
[2017-05-01] MEDS ORDERED: LORazepam 0.5 MG TABLET PO PRN
[2017-05-01] MEDS ORDERED: BISACODYL 10 MG RECTAL RECTAL SUPPOSITORY PR PRN
[2017-05-01] MEDS ORDERED: MAGNESIUM HYDROXIDE SUSPENSION 30 ML UDCUP PO PRN
[2017-05-01] MEDS ORDERED: DEXTROSE 50%-WATER 25 GM/50 ML SYRINGE IVP PRN
[2017-05-01] MEDS ORDERED: ALBUTEROL SULFATE HFA 90 MCG/PUFF 8 GM INHALER IH PRN
[2017-05-01] MEDS ORDERED: NITROGLYCERIN 0.4 MG SUBLINGUAL TABLET #25 SL PRN
[2017-05-01 00:13] VITALS: BP 166/92
[2017-05-01] MEDS ORDERED: SODIUM CHLORIDE 0.9% 500 ML IV ONE (00:41)
[2017-05-01] MEDS: CefTRIAXone SODIUM 1 GM in DEXTROSE 5%-WATER 10 ML IV SCH (00:54)
[2017-05-01] MEDS: ONDANSETRON HCL 4 MG/2 ML VIAL IVP PRN ×2 (01:24→09:52)
[2017-05-01] MEDS: AZITHROMYCIN 500 MG/NS 250 ML IV SCH (02:51)
[2017-05-01 04:28] VITALS: BP 150/81
[2017-05-01 04:43] LABS: INFLUENZA TYPE A NEGATIVE FOR TYPE A (NEGATIVE); INFLUENZA TYPE B NEGATIVE FOR TYPE B (NEGATIVE)
[2017-05-01 07:20] LABS: BASOPHILS % (AUTO) 0.2 % (0.0-2.0); EOSINOPHILS % (AUTO) 0.4 % (1.0-6.0); HEMATOCRIT 27.3 % (36-46); LYMPHOCYTES % (AUTO) 12.5 % (22.0-44.0); MEAN CORPUSCULAR HEMOGLOBIN 28.3 pg (26.0-34.0); MEAN CORPUSCULAR HGB CONC 33.1 G/dL (31.0-37.0); MEAN CORPUSCULAR VOLUME 86 fL (80-100); MONOCYTES # (AUTO) 0.7 K/uL (0.1-1.0); MONOCYTES % (AUTO) 8.6 % (2.0-9.0); NEUTROPHILS # (AUTO) 6.6 K/uL (1.8-7.7); NEUTROPHILS % (AUTO) 78.3 % (40.0-70.0); PLATELET COUNT (AUTO) 428 K/uL (150-450); RED BLOOD CELL COUNT(AUTO) 3.19 MIL/uL (4.00-5.20); RED CELL DISTRIBUTION WIDTH 18.2 % (11.5-14.5)
[2017-05-01 07:30] VITALS: BP 163/73
[2017-05-01 07:36] LABS: % IRON SATURATION 10.1 % (22-44); IRON, SERUM 21 mcg/dL (50-175); TOTAL IRON BINDING CAPACITY 206 mcg/dL (250-450)
[2017-05-01 07:48] LABS: ALANINE AMINOTRANSFERASE 9 U/L (12-78); ALBUMIN 2.2 g/dL (3.4-5.0); ALKALINE PHOSPHATASE 122 U/L (46-116); ANION GAP 1 mmol/L (8-16); ASPARTATE AMINOTRANSFERASE 12 U/L (15-37); BILIRUBIN,TOTAL 0.1 mg/dL (0.1-1.0); CALCIUM, TOTAL 8.4 mg/dL (8.8-10.5); CARBON DIOXIDE 37 mmol/L (22-29); CHLORIDE 98 mmol/L (98-107); CREATININE 0.55 mg/dL (0.60-1.30); FERRITIN 21 ng/mL (8-252); FREE T4 (FREE THYROXINE) 1.06 ng/dL (0.76-1.46); GLOMERULAR FILTR. RATE CALC > 60 mL/min (>60); GLUCOSE,RANDOM 185 mg/dL (70-110); POTASSIUM 3.8 mmol/L (3.5-5.1); SODIUM SERUM 136 mmol/L (136-145); UREA NITROGEN, BLOOD 1 mg/dL (7-18)
[2017-05-01 07:58] LABS: GLUCOMETER DEV NAME(LOC) 5N 1N; GLUCOSE,POINT OF CARE 189 MG/DL (70-110)
[2017-05-01] MEDS: ASPIRIN 81 MG EC TABLET PO SCH (08:10)
[2017-05-01] MEDS: FOLIC ACID 1 MG TABLET PO SCH (08:10)
[2017-05-01] MEDS: PANTOPRAZOLE SODIUM 40 MG DR TABLET PO SCH (08:10)
[2017-05-01] MEDS: FERROUS SULFATE 325 MG EC TABLET PO SCH ×3 (08:10→17:37)
[2017-05-01] MEDS: CLOPIDOGREL BISULFATE 75 MG TABLET PO SCH (08:10)
[2017-05-01] MEDS: DOCUSATE SODIUM 100 MG CAPSULE PO SCH ×2 (08:10→20:48)
[2017-05-01] MEDS: TIOTROPIUM BROMIDE 18 MCG/INH HANDIHALER [5] IH SCH (08:12)
[2017-05-01] MEDS: ESCITALOPRAM OXALATE 10 MG TABLET PO SCH (08:12)
[2017-05-01] MEDS: HEPARIN SODIUM,PORCINE 5,000 UNITS/ML VIAL SQ SCH ×2 (08:12→20:48)
[2017-05-01] MEDS: METOPROLOL SUCCINATE 50 MG ER TABLET PO SCH (08:12)
[2017-05-01] MEDS: FLUTICASONE/SALMETEROL 250 MCG-50 MCG/INH DISKUS INHALER [28] IH SCH ×2 (08:16→20:49)
[2017-05-01 10:01] LABS: FOLATE SERUM 13.1 ng/mL (5.4-)
[2017-05-01] MEDS ORDERED: HYDR25TA84 PO (11:54)
[2017-05-01] MEDS ORDERED: FURO20 PO (11:55)
[2017-05-01] MEDS: INSULIN ASPART 100 UNITS/ML SQ PRN (12:07)
[2017-05-01 12:43] LABS: GLUCOMETER DEV NAME(LOC) 5S 1M; GLUCOSE,POINT OF CARE 221 MG/DL (70-110)
[2017-05-01 12:53] VITALS: BP 169/74
[2017-05-01 15:38] VITALS: BP 164/80
[2017-05-01] MEDS: LORazepam 0.5 MG TABLET PO PRN (15:45)
[2017-05-01] MEDS: HydrALAZINE HCL 25 MG TABLET PO SCH (17:37)
[2017-05-01] MEDS ORDERED: LACTULOSE 20 GM/30 ML SOLUTION UDCUP PO PRN (17:45)
[2017-05-01 20:02] VITALS: BP 152/75
[2017-05-01 23:23] LABS: GLUCOMETER DEV NAME(LOC) 5S 1M; GLUCOSE,POINT OF CARE 177 MG/DL (70-110)
[2017-05-02] VITALS (7 sets, daily range): BP systolic 137–171; BP diastolic 72–87
[2017-05-02] MEDS: CefTRIAXone SODIUM 1 GM in DEXTROSE 5%-WATER 10 ML IV SCH (00:09)
[2017-05-02] MEDS: HydrALAZINE HCL 25 MG TABLET PO SCH ×3 (00:09→15:50)
[2017-05-02] MEDS: LORazepam 0.5 MG TABLET PO PRN ×2 (00:46→15:50)
[2017-05-02] MEDS: AZITHROMYCIN 500 MG/NS 250 ML IV SCH (03:15)
[2017-05-02 04:04] LABS: GLUCOMETER DEV NAME(LOC) 5N 1N; GLUCOSE,POINT OF CARE 167 MG/DL (70-110)
[2017-05-02] MEDS: INSULIN ASPART 100 UNITS/ML SQ PRN ×3 (06:08→18:09)
[2017-05-02] MEDS: ACETAMINOPHEN 325 MG TABLET PO PRN ×2 (06:08→20:23)
[2017-05-02] MEDS: TIOTROPIUM BROMIDE 18 MCG/INH HANDIHALER [5] IH SCH (08:59)
[2017-05-02] MEDS: FLUTICASONE/SALMETEROL 250 MCG-50 MCG/INH DISKUS INHALER [28] IH SCH ×2 (08:59→20:18)
[2017-05-02] MEDS: CLOPIDOGREL BISULFATE 75 MG TABLET PO SCH (08:59)
[2017-05-02] MEDS: ESCITALOPRAM OXALATE 10 MG TABLET PO SCH (09:00)
[2017-05-02] MEDS: ASPIRIN 81 MG EC TABLET PO SCH (09:00)
[2017-05-02] MEDS: DOCUSATE SODIUM 100 MG CAPSULE PO SCH ×2 (09:00→20:18)
[2017-05-02] MEDS: METOPROLOL SUCCINATE 50 MG ER TABLET PO SCH (09:00)
[2017-05-02] MEDS: PANTOPRAZOLE SODIUM 40 MG DR TABLET PO SCH (09:00)
[2017-05-02] MEDS: FERROUS SULFATE 325 MG EC TABLET PO SCH ×3 (09:01→18:03)
[2017-05-02] MEDS: FOLIC ACID 1 MG TABLET PO SCH (09:01)
[2017-05-02] MEDS: HEPARIN SODIUM,PORCINE 5,000 UNITS/ML VIAL SQ SCH ×2 (09:02→20:18)
[2017-05-02] MEDS ORDERED: LACTULOSE 20 GM/30 ML SOLUTION UDCUP PO PRN (20:00)
[2017-05-03] MEDS: CefTRIAXone SODIUM 1 GM in DEXTROSE 5%-WATER 10 ML IV SCH (00:10)
[2017-05-03] MEDS: HydrALAZINE HCL 25 MG TABLET PO SCH ×3 (00:10→16:47)
[2017-05-03] MEDS: LORazepam 0.5 MG TABLET PO PRN ×2 (02:17→09:04)
[2017-05-03] MEDS: ACETAMINOPHEN 325 MG TABLET PO PRN (02:17)
[2017-05-03] MEDS: AZITHROMYCIN 500 MG/NS 250 ML IV SCH (04:07)
[2017-05-03 04:18] VITALS: BP 149/81
[2017-05-03 04:23] LABS: GLUCOMETER DEV NAME(LOC) 5S 1M; GLUCOSE,POINT OF CARE 235 MG/DL (70-110)
[2017-05-03 04:23] LABS: GLUCOMETER DEV NAME(LOC) 5S 1M; GLUCOSE,POINT OF CARE 155 MG/DL (70-110)
[2017-05-03 04:23] LABS: GLUCOMETER DEV NAME(LOC) 5N 1N; GLUCOSE,POINT OF CARE 207 MG/DL (70-110)
[2017-05-03 04:23] LABS: GLUCOMETER DEV NAME(LOC) 5S 1M; GLUCOSE,POINT OF CARE 142 MG/DL (70-110)
[2017-05-03] MEDS: INSULIN ASPART 100 UNITS/ML SQ PRN ×2 (06:04→12:02)
[2017-05-03 08:00] VITALS: BP 167/91
[2017-05-03 08:08] LABS: GLUCOMETER DEV NAME(LOC) 5S 1M; GLUCOSE,POINT OF CARE 243 MG/DL (70-110)
[2017-05-03] MEDS: TIOTROPIUM BROMIDE 18 MCG/INH HANDIHALER [5] IH SCH (08:59)
[2017-05-03] MEDS: FLUTICASONE/SALMETEROL 250 MCG-50 MCG/INH DISKUS INHALER [28] IH SCH (08:59)
[2017-05-03] MEDS: ESCITALOPRAM OXALATE 10 MG TABLET PO SCH (09:00)
[2017-05-03] MEDS: PANTOPRAZOLE SODIUM 40 MG DR TABLET PO SCH (09:00)
[2017-05-03] MEDS: HEPARIN SODIUM,PORCINE 5,000 UNITS/ML VIAL SQ SCH (09:00)
[2017-05-03] MEDS: DOCUSATE SODIUM 100 MG CAPSULE PO SCH (09:01)
[2017-05-03] MEDS: METOPROLOL SUCCINATE 50 MG ER TABLET PO SCH (09:01)
[2017-05-03] MEDS: CLOPIDOGREL BISULFATE 75 MG TABLET PO SCH (09:01)
[2017-05-03] MEDS: ASPIRIN 81 MG EC TABLET PO SCH (09:01)
[2017-05-03] MEDS: FERROUS SULFATE 325 MG EC TABLET PO SCH ×2 (09:01→12:00)
[2017-05-03] MEDS: FOLIC ACID 1 MG TABLET PO SCH (09:01)
[2017-05-03 11:25] VITALS: BP 161/80
[2017-05-03 12:08] LABS: GLUCOMETER DEV NAME(LOC) 5N 1N; GLUCOSE,POINT OF CARE 215 MG/DL (70-110)
[2017-05-03 15:11] VITALS: BP 164/83
[2017-05-03 15:16] LABS: LEGIONELLA PNEUMO AG URINE Negative (Negative); ORGANISM ID Not indicated.; S PNEUMO SOURCE Urine; STREP PNEUMONIAE AG URINE Negative (Negative); STREP.PNEUMO BODY FLUID CULT. Not Indicated
[2017-05-03] MEDS ORDERED: LEVO750T21 PO (16:07)
[2017-05-03] MEDS ORDERED: OXYGEN THERAPY IH SCH (20:00)
== END 2017-05-03 17:10 | disposition home or self-care (01) | DRG 193 ==
LOC: EMS 18:18 → 5S 22:53
PROVIDERS: ADMIT Internal Medicine; ATTEND Internal Medicine
DX: J18.9 Pneumonia, unspecified organism (principal); E43 Unspecified severe protein-calorie malnutrition; E11.51 Type 2 diabetes mellitus with diabetic peripheral angiopathy without gangrene; E11.65 Type 2 diabetes mellitus with hyperglycemia; E86.0 Dehydration; I11.0 Hypertensive heart disease with heart failure; I50.9 Heart failure, unspecified; J44.0 Chronic obstructive pulmonary disease with (acute) lower respiratory infection; J44.1 Chronic obstructive pulmonary disease with (acute) exacerbation; D50.9 Iron deficiency anemia, unspecified; D64.9 Anemia, unspecified; E03.9 Hypothyroidism, unspecified; F32.9 Major depressive disorder, single episode, unspecified; I11.9 Hypertensive heart disease without heart failure; K86.9 Disease of pancreas, unspecified; I25.10 Atherosclerotic heart disease of native coronary artery without angina pectoris; E78.00 Pure hypercholesterolemia, unspecified; Z82.49 Family history of ischemic heart disease and other diseases of the circulatory system; Z83.3 Family history of diabetes mellitus; Z87.891 Personal history of nicotine dependence; Z95.5 Presence of coronary angioplasty implant and graft; Z99.81 Dependence on supplemental oxygen; Z88.2 Allergy status to sulfonamides; Z79.899 Other long term (current) drug therapy; Z68.22 Body mass index [BMI] 22.0-22.9, adult
CPT/HCPCS: 74177; 82378; 82607; 82728; 82746; 82962; 83540; 83550; 84145; 84439; 84443; 86301; 87081; 87449; 87798; 87804; 87899; 92610; 93005; 93306; 97161; 97165; 97530; J0456; J0696; J1644; J1956; J2405; J3535; J7030; J7040; J7060

== ENCOUNTER 2017-07-05 03:13 | Emergency (ER) | payer MEDICARE, OTHER ==
[~2017-07-05] VITALS: Ht 154.9 cm; Wt 53.2 kg
[~2017-07-05 03:13] MED LIST changes: -CHL25 PO; +FURO20 PO; +HYDR25TA84 PO; +LEVO750T21 PO; +METF-444 PO; -METF500T4 PO
[2017-07-05 03:32] LABS: GLUCOSE,POINT OF CARE 254 MG/DL (70-110)
[2017-07-05] MEDS ORDERED: MORPHINE SULFATE 4 MG/ML SYRINGE IVP ONE (05:30)
[2017-07-05] MEDS ORDERED: ONDANSETRON HCL 4 MG TABLET PO ONE (05:30)
[2017-07-05] MEDS ORDERED: ONDANSETRON HCL 4 MG/2 ML VIAL IVP ONE (05:45)
[2017-07-05] MEDS ORDERED: SODIUM CHLORIDE 0.9% 250 ML IV ONE (05:45)
[2017-07-05 06:08] LABS: BASOPHILS % (AUTO) 0.1 % (0.0-2.0); EOSINOPHILS % (AUTO) 0 % (1.0-6.0); HEMATOCRIT 33.6 % (36-46); LYMPHOCYTES # (AUTO) 0.4 K/uL (1.0-4.8); LYMPHOCYTES % (AUTO) 2.9 % (22.0-44.0); MEAN CORPUSCULAR HEMOGLOBIN 27.4 pg (26.0-34.0); MEAN CORPUSCULAR HGB CONC 32.6 G/dL (31.0-37.0); MEAN CORPUSCULAR VOLUME 84 fL (80-100); MONOCYTES # (AUTO) 0.7 K/uL (0.1-1.0); MONOCYTES % (AUTO) 5.1 % (2.0-9.0); NEUTROPHILS # (AUTO) 13.2 K/uL (1.8-7.7); PLATELET COUNT (AUTO) 240 K/uL (150-450); RED BLOOD CELL COUNT(AUTO) 4.01 MIL/uL (4.00-5.20); RED CELL DISTRIBUTION WIDTH 18.5 % (11.5-14.5)
[2017-07-05 06:11] LABS: NEUTROPHILS % (AUTO) 91.9 % (40.0-70.0)
[2017-07-05 06:23] LABS: ALANINE AMINOTRANSFERASE 18 U/L (12-78); ALBUMIN 2.8 g/dL (3.4-5.0); ALKALINE PHOSPHATASE 90 U/L (46-116); ANION GAP 2 mmol/L (8-16); ASPARTATE AMINOTRANSFERASE 18 U/L (15-37); BILIRUBIN,TOTAL 0.3 mg/dL (0.1-1.0); CALCIUM, TOTAL 10.2 mg/dL (8.8-10.5); CARBON DIOXIDE 36 mmol/L (22-29); CHLORIDE 100 mmol/L (98-107); CREATININE 0.83 mg/dL (0.60-1.30); GLOMERULAR FILTR. RATE CALC > 60 mL/min (>60); GLUCOSE,RANDOM 292 mg/dL (70-110); LIPASE 68 U/L (73-393); SODIUM SERUM 138 mmol/L (136-145); TOTAL PROTEIN, SERUM 6.4 g/dL (6.4-8.2); UREA NITROGEN, BLOOD 12 mg/dL (7-18)
[2017-07-05 06:26] LABS: INR 0.9 (0.9-1.1); PROTHROMBIN TIME 9.8 SEC (9.4-11.6)
[2017-07-05 06:43] LABS: POTASSIUM 2.9 mmol/L (3.5-5.1)
[2017-07-05] MEDS ORDERED: POTASSIUM CHLORIDE 20 MEQ ER TABLET PO ONE (07:00)
[2017-07-05 08:13] VITALS: BP 148/79
[2017-07-05 08:28] LABS: APPEARANCE,URINE CLEAR (CLEAR); GLUCOSE, URINE (UA) >=1000 mg/dL (NEGATIVE); KETONES,URINE TRACE mg/dL (NEGATIVE); LEUKOCYTE ESTERASE ,URINE NEGATIVE (NEGATIVE); NITRATE,URINE NEGATIVE (NEGATIVE); OCCULT BLOOD,URINE NEGATIVE (NEGATIVE); UROBILINOGEN,URINE 0.2 mg/dL (<=1.0)
[2017-07-05 08:38] LABS: BILIRUBIN,URINE PRELIM. POSITIVE (NEGATIVE)
[2017-07-05 08:39] LABS: BACTERIA,URINE None Seen /HPF (None Seen); PROTEIN,URINE NEGATIVE (NEGATIVE); RBC,URINE None Seen /HPF (0-2); SQUAMOUS EPITHELIAL CELL,UR Few /LPF (None Seen); WBC,URINE None Seen /HPF (0-5)
== END 2017-07-05 09:23 | disposition home or self-care (01) ==
LOC: EMS 03:16
DX: C25.9 Malignant neoplasm of pancreas, unspecified (principal); E87.6 Hypokalemia; J45.909 Unspecified asthma, uncomplicated; I11.0 Hypertensive heart disease with heart failure; I50.9 Heart failure, unspecified; J44.9 Chronic obstructive pulmonary disease, unspecified; E11.9 Type 2 diabetes mellitus without complications; I25.10 Atherosclerotic heart disease of native coronary artery without angina pectoris; F17.210 Nicotine dependence, cigarettes, uncomplicated; Z79.82 Long term (current) use of aspirin; Z88.2 Allergy status to sulfonamides; Z88.8 Allergy status to other drugs, medicaments and biological substances
CPT/HCPCS: 36415; 51701; 74176; 80053; 81001; 82962; 83690; 85025; 85610; 85730; 96361; 96374; 96375; 99285; J2270; J2405; J7050; Q0162

== ENCOUNTER 2017-12-25 09:40 | Emergency (ER) | payer MEDICARE, OTHER ==
[~2017-12-25] VITALS: Ht 162.6 cm; Wt 46.7 kg
[~2017-12-25 09:40] MED LIST changes: -ESCI10TA PO; -LEVO750T21 PO
[2017-12-25 09:48] VITALS: BP 0/0
== END 2017-12-25 13:38 | disposition expired ==
LOC: EMS 09:42
DX: I46.9 Cardiac arrest, cause unspecified (principal); I49.01 Ventricular fibrillation; J45.909 Unspecified asthma, uncomplicated; I25.10 Atherosclerotic heart disease of native coronary artery without angina pectoris; I11.0 Hypertensive heart disease with heart failure; I50.9 Heart failure, unspecified; J44.9 Chronic obstructive pulmonary disease, unspecified; F17.210 Nicotine dependence, cigarettes, uncomplicated; Z88.2 Allergy status to sulfonamides; Z88.8 Allergy status to other drugs, medicaments and biological substances; Z79.899 Other long term (current) drug therapy; Z79.82 Long term (current) use of aspirin; Z79.84 Long term (current) use of oral hypoglycemic drugs
CPT/HCPCS: 31500; 92950